=== PATIENT | female | born 2000 | race African-American/Black ===

== ENCOUNTER 2022-02-04 19:57 | Emergency (ER) | payer MEDICARE, MEDICAID, SELFPAY ==
[2022-02-04 19:58] VITALS: BP 139/96; PULSE 74; RESP 18; TEMP 36.3; O2SAT 100
--- NOTE | 2022-02-04 20:12 | ED.DENTAL ---
HPI - Dental/Oral General Chief complaint: Dental/Oral Stated complaint: dental pain Time Seen by Provider: 02/04/22 20:05 History of Present Illness HPI Narrative: 21-year-old female presents emergency room accompanied by family. She comes in secondary to pain to the left lower molar area. She is got some swelling in the area. She was seen by dentist about a month and a half ago and put on a course of antibiotics. She has an extensive dental caries with a fractured tooth in that area. She has a follow-up appointment is not till April 01. She is having recurrence of swelling and pain at this time. No chills or fevers. Related Data Allergies Allergy/AdvReac Type Severity Reaction Status Date / Time SHRIMP Allergy Unknown Uncoded 02/04/22 20:01 Review of Systems Review of Systems: CONSTITUTIONAL: Denies fever, chills, or sweats. EYES: Denies visual changes, redness, or discharge. ENT: Denies rhinorrhea, congestion, sore throat, or otalgia. Dental pain with swelling CARDIOVASCULAR: Denies chest pain, palpitations, or edema. RESPIRATORY: Denies cough or dyspnea. GASTROINTESTINAL: Denies abdominal pain, nausea, vomiting, or diarrhea. GENITOURINARY: Denies dysuria or hematuria. SKIN: Denies rash or itching. MUSCULOSKELETAL: Denies back pain, joint pain, or myalgia. NEUROLOGIC: Denies headache, numbness, or weakness. PSYCHIATRIC: Denies anxiety or depression. PMFSH Past Medical History Medical History Depression Social History Social History (Updated 02/04/22 @ 20:14 by Miguel Mills DO) Smoking status: Never smoker Alcohol intake: never Exam Narrative: APPEARANCE: Well appearing, no pain or distress, well-nourished. Head Normocephalic and atraumatic. EYES: PERRLA/EOMI, conjunctivae clear. NOSE: Normal with no drainage EARS:TMS clear with [place], with good light reflex. THROAT: Pharynx clear, no exudate. Extensive dental carry to the left lower first molar to the entire medial aspect it is decayed away. She has a lot of swelling to the gums in the area. NECK: Supple. No adenopathy, no masses. RESPIRATORY: Airway patent, respirations nonlabored. Clear to auscultation bilaterally, no rales, rhonchi, wheezing. CARDIOVASCULAR: Regular rate and rhythm without murmurs, rubs, or gallops. ABDOMINAL: Soft, nontender, nondistended, no hepatosplenomegaly Musculoskeletal: Moves all extremities. Strength/ROM intact, No edema, No calf tenderness. NEURO: Alert. Cranial nerves II through XII intact. Normal gait. Good coordination. Nonfocal examination. SKIN:: Warm, dry. Normal Color PSYCHIATRIC: Normal affect/mood, normal interaction Course Vital Signs Vital signs: Vital Signs Temperature 97.3 F L 02/04/22 19:58 Pulse Rate 74 02/04/22 19:58 Respiratory Rate 18 02/04/22 19:58 Blood Pressure 139/96 H 02/04/22 19:58 Pulse Oximetry 100 02/04/22 19:58 Oxygen Delivery Room Air 02/04/22 19:58 Temperature 97.3 F L 02/04/22 19:58 Pulse Rate 74 02/04/22 19:58 Respiratory Rate 18 02/04/22 19:58 Blood Pressure 139/96 H 02/04/22 19:58 Pulse Oximetry 100 02/04/22 19:58 Oxygen Delivery Room Air 02/04/22 19:58 MDM - Dental/Oral MDM Narrative Medical decision making narrative: Patient extensive dental caries with a dental abscess at this time. Patient put on a course of antibiotics as well as given some naproxen to assist with the pain. Advised her to call the dental school and see if she can get an appointment much sooner than 27 March to get this taken care of. Discharge Plan Discharge Clinical Impression: Toothache, Dental abscess, Dental caries Patient Disposition: Home, Self-Care Condition: Stable Instructions: Antibiotic Form, Dental Abscess (ED) Additional Instructions: Call the dental school and see if you can get an appointment sooner. Take medication as prescribed. Return if worse. Prescriptions: New
== END 2022-02-04 20:19 | disposition home or self-care (01) ==
LOC: ANHED 20:15
PROVIDERS: Emergency Provider Emergency Medicine
DX: K04.7 Periapical abscess without sinus (principal); K02.9 Dental caries, unspecified
CPT/HCPCS: 99283

== ENCOUNTER 2023-09-21 10:56 | Outpatient (CLI) | payer MEDICARE, MEDICAID, SELFPAY ==
[2023-09-21 16:29] LABS: Hematocrit 41.2 % (37.0-47.0); Hemoglobin 12.9 g/dL (12.0-15.0); Mean Corpuscular HGB Conc 31.3 g/dl (32-36); Mean Corpuscular Hemoglobin 27.9 pg (26-34); Mean Corpuscular Volume 89.2 fl (80-100); Platelet Count Result 343 k/mm3 (150-375); Red Blood Count 4.62 M/mm3 (4.2-5.4); White Blood Count 7.3 K/mm3 (4.5-10.0)
[2023-09-21 16:37] LABS: Alanine Aminotransferase 17 U/L (6-35); Albumin Level 4.3 g/dL (3.5-5.1); Alkaline Phosphatase 82 U/L (38-126); Anion Gap 8 mmol/L (4-12); Aspartate Amino Transferase 61 U/L (14-36); Bilirubin,Total 0.4 mg/dL (0.2-1.3); Blood Urea Nitrogen 13 mg/dL (7-17); Calcium 9.4 mg/dL (8.4-10.2); Carbon Dioxide 25 mmol/L (22-30); Chloride 105 mmol/L (98-107); Cholesterol 176 mg/dL (0-200); Estimated Glomerular Filt Rate > 60; Glucose 92 mg/dL (65-110); HDL Direct 43 mg/dL; Potassium 4.2 mmol/L (3.4-5.0); Sodium 138 mmol/L (137-145); Triglycerides 82 mg/dL (<150)
[2023-09-21 16:48] LABS: LDL Cholesterol Direct 92 mg/dL
[2023-09-21 17:09] LABS: Total Triiodothyronine (T3) 1.26 NG/ML (0.97-1.69)
[2023-09-21 17:25] LABS: Free T4 Free Thyroxine 0.92 ng/mL (0.78-2.19); Vitamin D 25 Hydroxy 26.7 ng/mL
== END 2023-09-21 10:57 | disposition home or self-care (01) ==
LOC: ANHWCLAB 11:02
PROVIDERS: PCP Registered Nurse; Visit Provider Registered Nurse
DX: R53.83 Other fatigue (principal); R53.1 Weakness; J45.40 Moderate persistent asthma, uncomplicated; E55.9 Vitamin D deficiency, unspecified; E78.5 Hyperlipidemia, unspecified; I10 Essential (primary) hypertension
CPT/HCPCS: 36415; 80053; 80061; 82306; 84439; 84443; 84480; 85025

== ENCOUNTER 2023-09-22 11:03 | Outpatient (NON) | payer MEDICARE, MEDICAID, SELFPAY ==
[2023-09-22 18:10] LABS: Creatinine Urine 118.2 mg/dL
[2023-09-22 18:57] LABS: Microalbumin Urine Random < 6.0 mg/L (0-16.7)
[2023-09-22 18:58] LABS: MALB Creatinine Ratio < 5.1 mg/g (0-30)
== END 2023-09-22 11:04 | disposition home or self-care (01) ==
LOC: ANHWCLAB 11:07
PROVIDERS: PCP Registered Nurse; Visit Provider Registered Nurse
DX: E78.5 Hyperlipidemia, unspecified (principal); I10 Essential (primary) hypertension; E55.9 Vitamin D deficiency, unspecified; J45.40 Moderate persistent asthma, uncomplicated; E66.9 Obesity, unspecified; R53.1 Weakness; R53.83 Other fatigue
CPT/HCPCS: 82043

== ENCOUNTER 2025-01-16 13:22 | Outpatient (CLI) | payer MEDICARE, SELFPAY ==
--- NOTE | 2025-01-16 | ECHO_ITS ---
Patient Info Name: Joselyn Lovell Age: 24 years : 2000 Gender: Female Ht: 64 in Wt: 264 lbs BSA: 2.39 m2 HR: 73 bpm BP: 120 / 82 mmHg Heart Rhythm: Sinus Rhythm Technical Quality: Good Exam Date: 01/16/2025 1:32 PM Patient Status: O Admit Date: 01/16/2025 Exam Type: CA echo doppler color flow Complete two-dimensional, color flow and Doppler transthoracic echocardiogram is performed. Electronic Imaging System Operator: Sue Casillas Attending Provider: Len Hobbs Summary 1. Complete two-dimensional, color flow and Doppler transthoracic echocardiogram is performed. 2. Left ventricular chamber dimension is normal. 3. Left ventricular systolic function is normal, estimated at 60-65. 4. There is mildly increased left ventricular wall thickness. 5. The left ventricular diastolic function is normal. 6. There is mild mitral valve regurgitation. 7. There is mild pulmonic regurgitation. Left Ventricle Left ventricular chamber dimension is normal. Left ventricular systolic function is normal, estimated at 60-65. There is mildly increased left ventricular wall thickness. The left ventricular diastolic function is normal. Right Ventricle Right ventricular chamber dimension is normal. Right ventricular systolic function is normal. Left Atria Left atrial chamber dimension is normal. Right Atria Right atrial chamber dimension is normal. Atrial Septum Intact interatrial septum visualized by color flow imaging. Aortic Valve The aortic valve is trileaflet. There is no aortic valve sclerosis. There is no aortic valve stenosis. There is trace aortic valve regurgitation. Pulmonic Valve The pulmonic valve is normal. There is no pulmonic valve stenosis. There is mild pulmonic regurgitation. Mitral Valve The mitral valve has normal leaflets. There is no mitral valve stenosis. There is mild mitral valve regurgitation. Tricuspid Valve The tricuspid valve leaflets are normal. There is no significant tricuspid valve stenosis. There is trace tricuspid valve regurgitation. Pericardium/Pleural The pericardium appears normal. There is no pericardial effusion. Inferior Vena Cava Normal inferior vena cava with >50% collapse upon inspiration consistent with normal right atrial pressure, 5 mmHg. Aorta The aortic root size at the sinus of Valsalva is normal. Left Ventricular Outflow Tract Name Value Normal LVOT 2D LVOT Diameter 2.0 cm LVOT Doppler LVOT Peak Velocity 88 cm/s LVOT Peak Gradient 3 mmHg LVOT Mean Gradient 2 mmHg LVOT VTI 16 cm LVOT VTI/AV VTI Ratio 0.7 LVOT Stroke Volume 50 ml LVOT CO 3.4 l/min LVOT CI 1.4 l/min/m2 Pulmonic Valve Name Value Normal RVOT Doppler RVOT Peak Velocity 70 cm/s RVOT Peak Gradient 2 mmHg PV Doppler PV Peak Velocity 99 cm/s PV Peak Gradient 4 mmHg Mitral Valve Name Value Normal MV Diastolic Function MV E Peak Velocity 74 cm/s MV A Peak Velocity 43 cm/s MV E/A 1.7 MV Decel Time (PW) 207 ms MV Annular TDI MV E/e' (Septal) 6.1 MV E/e' (Lateral) 4.8 MV E/e' (Average) 5.5 Tricuspid Valve Name Value Normal Estimated PAP/RSVP RA Pressure 5 mmHg <=5 TV Annular TDI TV Lateral Bernarda s' Velocity 12.3 cm/s >=9.5 Aortic Valve Name Value Normal AV Doppler AV Peak Velocity 116 cm/s AV Peak Gradient 5 mmHg AV Mean Gradient 3 mmHg AV VTI 23 cm AV Area (Cont Eq VTI) 2.2 cm2 >=3.0 AV Area (Cont Eq Graham) 2.3 cm2 AV DI (Graham) 0.75 AV Regurgitation 2D LVOT Area 3.1 cm2 Ventricles Name Value Normal LV Dimensions 2D/MM IVS Diastolic Thickness (2D) 1.0 cm 0.6-1.0 LVID Diastole (2D) 4.2 cm 3.8-5.2 LVIW Diastolic Thickness (2D) 1.0 cm 0.6-0.9 LVID Systole (2D) 2.9 cm 2.2-3.5 LVOT Diameter 2.0 cm LV Mass (2D Cubed) 141.36 g 67.00-162.00 LV Mass Index (2D Cubed) 59 g/m2 43-95 Relative Wall Thickness (2D) 0.49 <=0.42 LV Fractional Shortening/Ejection Fraction 2D/MM LV Fractional Shortening (2D) 32 % 27-45 LV EF (2D Teichholz) 60 % LV Diastolic Volume (4C MOD) 52 ml LV EF (4C MOD) 59 % LV Diastolic Volume (2C MOD) 54 ml LV EF (2C MOD) 61 % LV Diastolic Volume (BP MOD) 54 ml 46-106 LV Diastolic Volume Index (BP MOD) 23 ml/m2 29-61 LV Systolic Volume (BP MOD) 22 ml 14-42 LV Systolic Volume Index (BP MOD) 9 ml/m2 8-24 LV EF (BP MOD) 60 % 54-74 LV Diastolic Length (4C) 7.1 cm LV Systolic Length (4C) 6.1 cm LV Stroke Volume (4C MOD) 31 ml Atria Name Value Normal LA Dimensions LA Volume (4C A-L) 43 ml LA Volume (BP A-L) 51 ml RA Dimensions RA Area (4C) 13.1 cm2 <=18.0 Report Signatures
--- OUTSIDE RECORDS SUMMARY | 2025-01-16 13:27 | XMS_ITS | Continuity of Care Document ---
Author Organization [facility] Address [address] [place] [address] Phone Care Team Providers Care Polymerization Kettle Operator Name Role Phone Unavailable Unavailable Unavailable Allergies, Adverse Reactions, Alerts Substance Reaction Status Criticality No Known Allergies Active No Inform ation Medications Medication Instructions Dosage Effective Dates (start - stop) Status Comments triamcinolone acetonide 0.1 % topical cream apply by topical route 2 times every day a thin layer to the affected area(s) 0.00 - Active Procedures Procedure Date OFFICE/OUTPATIENT VISIT EST Office/outpatient visit,[facility] 2015 Advance Directives Directive Yes / No Effective Date File Name No Information Encounters Encounter Description Practice Location Reason(s) For Visit Diagnoses Date Provider Providers Copied on Encounter [facility], [address] [place], [id number] tel:[phone] [facility] [place] [facility] [place] No Information Sep-3 0 6 No Information OFFICE/OUTPAT IENT VISIT EST [facility], [address] [place], [id number] tel:[phone] [facility] [place] [employer] Nursing Comments (chief complaint)r brittany (chief complaint) Visit for TB skin testBMI pediatric, greater than or equal to 95% for ageRash, skin Sep-2 8201 6 No Information Office/outpat ient visit,[facility], [address] [place], [place], [id number] tel:[phone] [facility] Nursing Comments (chief complaint)r brittany (chief complaint) Rash, skinBMI pediatric, greater than or equal to 95% for age 5 No Information Family History Family Member Type Diagnosis Age At Onset No Information Payers Payer name Insurance type Covered constitution party ID Authoriza tibritni(s) [facility] [id number] Social History Type Description Quantity Date Captured Comments Sex Female Smoking Status No Information Plan Of Treatment Date Type Action Status Goal Dietary management education , guidance, and counseling completed History Of Present Illness Encounter Date Complaint History Of Prese nt Illness Nursing Comments TB skin test, e czema rash Onset: 6 months ago. Severity is moderate. The problem is worse. It occurs continuously. Location is both arms, leg and chest. The describes the rash as itchy and papular. Denies aggravating factors. Relieving factors include emollients and steroid creams. The symptoms are not relieved by OTC anti-itch creams/lotions. Nursing Comments Suspected rash. ....PAOLO [place] rash The patient pres ents for rash. This episode began 2 weeks ago. Affected area(s) include right hand. The patient describes the affected area(s) as itchy. The symptoms are not associated with contact with chemicals, contact with plants, new skin soaps/lotions and recent medicines. Associated symptoms include pruritus. There are no other household members with similar symptoms. Relevant history negative for history of atopic dermatitis. Functional Status Date Functional Assessmen t No Information Instructions Date Instruction Additional Infor sarah use steroid cream ov er rash on arms twice daily. Can use emollient such as eucerin, aquaphor, vaseline over the top of hte steroid cream after each use. Do not use for longer than 2 weeks, if worsens then return to clinic. 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
== END 2025-01-16 13:23 | disposition home or self-care (01) ==
PROVIDERS: PCP Registered Nurse; Visit Provider Internal Medicine
DX: R06.00 Dyspnea, unspecified (principal); I08.3 Combined rheumatic disorders of mitral, aortic and tricuspid valves
CPT/HCPCS: 93306